=== PATIENT | male | born 1955 | race Caucasian/White ===

== ENCOUNTER → 2016-12-05 | Day surgery (SDC) | payer OTHER ==
[~2016-12-05] VITALS: Ht 170.2 cm; Wt 95.2 kg
[~2016-12-05] MED LIST: ALBU8.5H2 INHALATION; ALBU8.5H4 IH; Dexamethasone 4 mg/mL Inj ONE; GABA600T2 PO; IPRA3AMP IH; LISI-567 PO; Lactated Ringer's 1,000 ML IV ONE; MOME13HF2 IH; MTH10T PO; OMEG-38 PO; OMEP20CA11 PO; OXYC-530 PO; OXYC30TA77 PO; PANT40TA3 PO; PRD2.5T PO; PRD5T PO; Propofol 10,000 mCg/mL 20 mL Inj ONE; TOCI162D SQ; ZOLP10TA5 PO
[2016-12-05 10:40] VITALS: BP 156/81; PULSE 64; RESP 17; O2SAT 95
[2016-12-05 12:19] VITALS: BP 130/75; PULSE 73; RESP 16; O2SAT 97
[2016-12-05 12:30] VITALS: BP 122/70; PULSE 69; RESP 14; O2SAT 98
[2016-12-05 12:35] VITALS: BP 154/81; PULSE 62; RESP 16; O2SAT 98
--- NOTE | 2016-12-05 12:56 | ENDO ---
[address] [address] ENDOSCOPY PROCEDURE PATIENT: JAISON SANTIAGO : 1955 MR#: [id number] ADMIT: 12/05/2016 JOB ID: [id number] DATE OF SERVICE: 12/05/2016 PROCEDURE: Colonoscopy. INDICATION: Screening The patient's ASA classification, Mallampati score, and medications as per Anesthesia note. INSTRUMENT USED: PCFH-180AL PREPARATION QUALITY: Good. PROCEDURE DETAILS: After informed consent was obtained, the patient was brought into the GI suite, where he was placed on oxygen via nasal cannula and monitored with continuous pulse oximeter, telemetry, and blood pressure monitoring. A time-out was performed. Then, he was placed in a left lateral decubitus position and medications were administered for sedation. Digital rectal exam was performed which was unremarkable. The colonoscope was then inserted into the rectum and advanced under direct visualization to the cecum, which was identified by the presence of the ileocecal valve and appendiceal orifice. Once cecum was reached, the colonoscope was withdrawn back in the rectum, and mucosa and lumen were examined. In the rectum, retroflexion was performed. Following retroflexion, remaining air in the rectum was suctioned and procedure was completed. FINDINGS: 1. Poor prep throughout the cecum, ascending colon, and proximal transverse colon. 2. In the ascending colon, there was an approximately 4 mm polyp that was removed with a cold snare. Following removal, we were unable to locate the polyp to retrieve it and therefore the polyp was not retrieved. IMPRESSION: 1. Ascending colon polyp. The polyp not retrieved. 2. Poor preparation. RECOMMENDATIONS: Repeat colonoscopy with two day prep. COMPLICATIONS: None. ESTIMATED BLOOD LOSS: Less than 5 mL MTDD
--- NOTE | 2016-12-05 15:21 | PCM.HPANE ---
Patient Data Date of Service: Dec 05, 2016 Surgeon Admitting Provider: Attending Provider:Fabiola Dyer MD Primary Care Physician:Brian Christianson MD Other Provider:Cj Akins Anesthesia Reason for Visit Screening Ht/WT & BMI Height (Feet): 5 Height (Inches): 7 Weight (Kilograms): 95.25 Body Mass Index 32.00 Allergies Coded Allergies: morphine (Verified Allergy, Severe, ITCHING, 12/05/16) atorvastatin (Unverified Adverse Reaction, Severe, NAUSEA, 12/05/16) lovastatin (Unverified Adverse Reaction, Severe, ineffective, 12/05/16) Past Anesthesia History Anesthesia History: Denies:: Abnormal Airway, Anesthesia Reactions, Fam Anesthesia Reaction, Fam Malignant Hypertherm, Malignant Hyperthermia Diabetes History Hx Diabetes?: No MRSA MRSA: No Medications Hypertension Medication: No Home Meds Incl Beta Britta: No Reported Medications Albuterol HFA (Proair HFA)8.5 Gm Hfa.aer.ad2 Puffs INHALATION Q4H #1 INHALER 12/05/16 Zolpidem 10 Mg Nsqprf06 Mg PO HS PRN For Insomnia Ref 0 12/05/16 Prednisone (PredniSONE)5 Mg Tab5 Mg PO DAILY Ref 0 12/05/[address] 40 Mg Tablet.dr40 Mg PO DAILY Ref 0 12/05/16 Methadone 10 Mg Tab10 Mg PO Q6H Ref 0 12/05/16 Ipratropium/Albuterol Sulfate (Iprat-Albut 0.5-3(2.5) mg/3 mL Inhalant Soln)3 Ml Ampul.neb3 Ml IH Q6 Ref 0 12/05/16 Gabapentin 600 Mg Xhchul135 Mg PO DAILY Ref 0 12/05/16 Tocilizumab (Actemra)162 Mg/0.9 Ml Bojpktd306 Mg SQ 12/05/16 Mometasone/Formoterol (Dulera 100 Mcg/5 Mcg Inhaler)13 Gm Hfa.aer.ad13 Gm IH BID 09/07/13 oxyCODONE 5 Mg Tablet5-15 Mg PO Q4H PRN For Pain Ref 0 09/07/13 Oxycodone ER (Oxycontin)30 Mg Tab.er.12h30 Mg PO Q 8HRS 09/07/13 Lisinopril 20 Mg Mxojnr52 Mg PO DAILY 30 Days Ref 0 09/07/13 Omeprazole 20 Mg Capsule.dr20 Mg PO DAILY 30 Days Ref 0 09/07/13 [place]-3/Dha/Epa/Fish Oil (Fish Oil 1,000 mg Softgel)1 Each Capsule1 Each PO BID 09/07/13 Discontinued Reported Medications Albuterol HFA 8.5 Gm Hfa.aer.ad1-2 Puff IH Q4 PRN For Shortness of Breath #1 INHALER Ref 0 09/07/13 Prednisone (PredniSONE)2.5 Mg Tab2.5 Mg PO BID Ref 0 5MG IN AM; 2.5MG IN PM OR UD 09/07/13 History History of ENT Problems?: No HEENT History: Positive for:: Sinus Problem Denies:: Cataracts Dysphagia Hearing Problem Denture Type: None Teeth Condition: Within Normal Limits Hx of Heart Problems?: Yes Cardiovascular History: Positive for:: Chest Pain (HEART TESTING WNL) Hypertension Denies:: Congestive Heart Failure Hx of Respiratory Problem?: Yes Respiratory History: Positive for:: Asthma Dyspnea (DUE TO ASTHMA) Pneumonia Denies:: COPD Chest Surgery Emphysema Hemoptysis Tuberculosis Use of C-PAP Machine Hx Neurologic Problems?: Yes Neurological History: Denies:: Alzheimer's Disease CVA Dementia Dizziness Headaches Parkinson's Disease Seizures Hx of GI Problems?: Yes Hx of Problems?: Yes Genitourinary History: Positive for:: Kidney Stones (S/P EXTRACTION X2) Denies:: Urinary Tract Infection Male Hx: Denies:: Prostate Problems Scrotal Mass Testicular Surgery Skin History: Denies:: History Skin Disorders? Pressure Ulcers Hx Musculoskeletal Problems?: Yes Musculoskeletal History: Positive for:: Back Injury (S/P LUMBAR SPINE PROCEDURES X2) Fibromyalgia Joint Replacement (left knee) Musculoskeletal Trauma (S/P SHOULDER RPR) Hx of Psycho/Social Problems?: No Hx Surgeries?: Yes (back, shoulder, left knee) Hx Any Other Health Problems?: Yes Other History: Positive for:: Endocrine Disease (Adrenal insufficiency) Hospitalization Denies:: Cancer Thyroid Disease History Blood Transfusions: Positive for:: Blood Transfusions Denies:: Blood Transfuse Reaction Hx Diabetes: No Hx Alcohol Use: Yes (weekly)Hx Substance Use: No Smoking Status: Unknown if Ever Smoker Have You Smoked inLast 12 mo: No Stop/Bang Treated for Sleep Apnea?: Yes Do You Have a CPAP Machine?: No S-Snoring: Do You Snore Loudly: Yes T-Tired: feel tired, fatigued: No O-Obsered: Observed not breath: No P-Blood Pressure: treated: Yes B- Body Mass Index > 35 kg/m2: No A- Age over 50: Yes N- Neck Large Circumference: No G- Gender Male: Yes HAYLEY Total Score: 4 HAYLEY Risk Assessment: High Risk, =/>3 Yes Risk Assessment Category Category 1A: Patient has history of documented sleep apnea, and HAS NOT received any narcotic, sedative or anesthesia administration during this stay. Category 1B: Patient has history of documented sleep apnea, and HAS received any narcotic , sedative or anesthesia administration during this stay Category 2: Patient has SUSPECTED Obstructive Sleep Apnea, and HAS received any narcotic , sedative or anesthesia administration during this stay. Category 3: Patient has SUSPECTED Obstructive Sleep Apnea and HAS NOT received narcotic, sedative or anesthesia administration during this stay. Category 4: Outpatient in Procedural Areas with known sleep apnea or who screen positive for High Risk via the STOP/BANG questionnaire. Exam Exam Vital Signs Vital Signs Date Time Temp Pulse Resp B/P Pulse Ox O2 Delivery O2 Flow Rate FiO2 12/05/16 12:35 62 16 154/81 98 Room Air 12/05/16 12:30 69 14 122/70 98 Room Air 12/05/16 12:19 73 16 130/75 97 Room Air 12/05/16 10:40 64 17 156/81 95 Room Air General Appearance: Oriented X3 HEENT/AIRWAY: MP 2 Lungs: Clear to Auscultation Heart: Exam Unremarkable Meds/Labs/Diagnostics Admission Meds Current Medications Lactated Ringer's (Lr) 1,000 ml @ 10 mls/hr Q24H ONCE IV Last administered on 12/05/16t 11:58; Start 12/05/16 at 07:54; Stop 12/06/16 at 07:53 Plan Impression Patient chart reviewed, patient interviewed and anesthestic plan with risks, benefits, and alternatives discussed, and informed consent obtained. ASA Physical Status: ASA3 Severe Disease Anesthetic Plan: MAC Bene/Risks/Altern/Consents: Yes HP Complete Prior to Induction: Yes Neftaly Matthew MD Dec 05, 2016 15:21
--- NOTE | 2016-12-05 15:22 | PCM.ANEP1 ---
Post Anesthesia PACU Phase 1 Assessment Vital Signs Vital Signs Date Time Temp Pulse Resp B/P Pulse Ox O2 Delivery O2 Flow Rate FiO2 12/05/16 12:35 62 16 154/81 98 Room Air 12/05/16 12:30 69 14 122/70 98 Room Air 12/05/16 12:19 73 16 130/75 97 Room Air 12/05/16 10:40 64 17 156/81 95 Room Air Anesthetic Administered: MAC Level of Alertness: Awake, talking Pain: No Nausea or Vomiting: No CV Function & Hydration Stable: Yes Airway Device: Oxygen Delivery: Room Air Lungs: Clear to Auscultation PACU Phase 2 Assessment Complications: No Follow up Care: N/A Patient Instructions Provided: N/A Neftaly Matthew MD Dec 05, 2016 15:22
== END | disposition home or self-care (01) ==
LOC: END 00:32
PROVIDERS: ATTEND Internal Medicine Gastroenterology
DX: Z12.11 Encounter for screening for malignant neoplasm of colon (principal); K63.5 Polyp of colon; I10 Essential (primary) hypertension; E78.5 Hyperlipidemia, unspecified; G47.33 Obstructive sleep apnea (adult) (pediatric); G89.29 Other chronic pain; N40.0 Benign prostatic hyperplasia without lower urinary tract symptoms; M06.9 Rheumatoid arthritis, unspecified; J45.909 Unspecified asthma, uncomplicated; M54.16 Radiculopathy, lumbar region; M79.7 Fibromyalgia; Z86.11 Personal history of tuberculosis; Z79.891 Long term (current) use of opiate analgesic; Z87.442 Personal history of urinary calculi; Z87.891 Personal history of nicotine dependence
CPT/HCPCS: 45385; J1100; J2704; J7120